=== PATIENT | male | born 1945 | race Caucasian/White ===

== ENCOUNTER 2018-09-15 12:21 | Day surgery (SDC) | payer MEDICARE, OTHER ==
[~2018-09-15] VITALS: Ht 152.4 cm; Wt 94.9 kg
[~2018-09-15 12:21] MED LIST: ACET500 PO; Avodart0.5 MG PO; BENADRYL25 MG PO; ROSU10TA PO; TRAM50 PO
--- NOTE | 2018-09-15 17:27 | NUR ---
1605 ARRIVED ARRIVED TO ROOM FROM PACU ACCOMPANIED BY
--- NOTE | 2018-09-15 18:11 | NUR ---
SUMMARY PATIENT SLEEPING WHEN UNDISTURBED. PATIENT REPORTS CURRENT PAIN TO LEFT KNEE IS 3/10. LEFT KNEE DRESSING DRY AND INTACT. PATIENT TAKING PO FLUID WITHOUT NAUSEA
[2018-09-16 04:26] LABS: BASOPHILS ABSOLUTE AUTO 0.02 K/mm3 (0.00-0.23); BASOPHILS PERCENT AUTO 0 % (0-2); EOSINOPHILS PERCENT AUTO 0 % (0-6); Hematocrit 42.3 % (37.0-53.0); IMMATURE GRAN ABSOLUTE AUTO 0.09 K/mm3 (0.00-0.10); IMMATURE GRAN PERCENT AUTO 1 % (0-1); LYMPHOCYTES ABSOLUTE AUTO 0.67 K/mm3 (0.84-5.20); LYMPHOCYTES PERCENT AUTO 4 % (21-46); MONOCYTES ABSOLUTE AUTO 0.84 K/mm3 (0.16-1.47); MONOCYTES PERCENT AUTO 5 % (4-13); Mean Corpuscular HGB 30.2 pg (26.0-34.0); Mean Corpuscular HGB Conc 33.1 g/dL (31.5-36.5); Mean Corpuscular Volume 91 fL (80-100); Mean Platelet Volume 9.1 fL (9.1-12.4); NEUTROPHILS ABSOLUTE AUTO 16.23 K/mm3 (1.96-9.15); NEUTROPHILS PERCENT AUTO 91 % (41-73); Platelet Count 228 K/mm3 (150-400); RDW Coefficient Variation 12.6 % (11.7-14.2); RDW Standard Deviation 41.9 fL (35.1-46.3); Red Blood Cell Count 4.64 M/mm3 (4.30-5.90); White Blood Cell Count 17.85 K/mm3 (4.00-11.30)
[2018-09-16 04:49] LABS: Anion Gap 6 mmol/L (6-16); Blood Urea Nitrogen 12 mg/dL (8-24); Bun/Creatinine Ratio 18.4 (12.0-20.0); CO2, Blood 27 mmol/L (21-32); Calcium, Blood 8.4 mg/dL (8.5-10.1); Chloride, Blood 103 mmol/L (98-108); Creatinine, Blood 0.65 mg/dL (0.60-1.20); Glomerular Filtration Rate >60 (60-); Glucose, Blood 139 mg/dL (70-99); Potassium, Blood 4.2 mmol/L (3.5-5.5); Sodium, Blood 136 mmol/L (136-145)
--- NOTE | 2018-09-16 07:19 | NUR ---
09/16/18 0719 Breanna Zaidi VERIFICATIONS: EDIT CHART.
--- NOTE | 2018-09-16 07:29 | NUR ---
SUMMARY: POD [address] WAITE. VSS, AFEBRILE, ROOM AIR. PT UP WITH 2 ASSIST FOR FIRST TIME OOB TO VOID AND HAS SEVERE N/V WITH EMESIS WHILE UP. PT MEDICATED WITH ZOFRAN AND REGLAN EFFECTIVELY RELIEVES N/V PER PT AND TOLERATES PRN PAIN MEDS WITH BITES OF CRACKERS AFTERWARDS. PAIN WELL COTROLLED WITH 10 ROXICODONE AND TYLENOL. ANTICIPATE PT/OT THIS DAY AND DC HOME.
[2018-09-16] MEDS ORDERED: Norco 5-325 Ta1 EACH PO (12:16)
[2018-09-16] MEDS ORDERED: ONDA4ODT MM (12:17)
[2018-09-16] MEDS ORDERED: Aspirin EC81 MG PO (12:23)
[2018-09-16] MEDS ORDERED: ONDA4 PO (12:45)
--- NOTE | 2018-09-16 14:38 | NUR ---
DISCHARGE PATIENT REPORTS PAIN CONTROLLED WITH NORCO. PATIENT DENIES NAUSEA. DISCHARGE ORDERS REVIEWED WITH PATIENT AND HIS . PATIENT DISCHARGED TO HOME
== END 2018-09-16 13:00 | disposition home or self-care (01) ==
LOC: ORSCMMR 12:21 → ORD 13:45 → SURS 16:40 → ORSCMMR 09-16 13:00 → SURS 09-16 13:00
PROVIDERS: Orthopaedic Surgery
PROC: 0SRD0JA Replacement of Left Knee Joint with Synthetic Substitute, Uncemented, Open Approach (ICD-10-PCS; principal; 2018-09-15 13:45)
DX: M17.12 Unilateral primary osteoarthritis, left knee (principal); E78.5 Hyperlipidemia, unspecified; Z79.899 Other long term (current) drug therapy
CPT/HCPCS: 36415; 73560-LT; 80048; 85025; 86850; 86900; 86901; 88300; 97110; 97116; 97162; 97530; A9270-GY; C1776; J0171; J0690; J0735; J1100; J1170; J2250; J2370; J2405; J2704; J2765; J2795; J3010; J7120

== ENCOUNTER 2020-01-29 11:27 | Day surgery (SDC) | payer MEDICARE, OTHER ==
[~2020-01-29] VITALS: Ht 182.9 cm; Wt 99.7 kg
[~2020-01-29 11:27] MED LIST changes: +Aspirin EC81 MG PO; +Norco 5-325 Ta1 EACH PO; +ONDA4 PO; +ONDA4ODT MM
[2020-01-29] MEDS ORDERED: ACETAMINOPHEN500 M2 (12:31)
--- NOTE | 2020-01-29 13:38 | NUR ---
01/29/20 1338 Ramón Denny SMALL RED SPOTS NOTED ON TOP OF FOOT AND ANKLE. NO OPEN SKIN NOTED.
== END 2020-01-29 15:16 | disposition home or self-care (01) ==
LOC: ORSCSDS 11:27
PROVIDERS: Podiatrist Foot & Ankle Surgery
PROC: 0SGN04Z Fusion of Left Metatarsal-Phalangeal Joint with Internal Fixation Device, Open Approach (ICD-10-PCS; principal; 2020-01-29 13:00)
DX: M20.22 Hallux rigidus, left foot (principal); Z87.891 Personal history of nicotine dependence; I10 Essential (primary) hypertension; E78.5 Hyperlipidemia, unspecified; Z79.899 Other long term (current) drug therapy
CPT/HCPCS: C1713; C1769; J0171; J0690; J1100; J2250; J2405; J2704; J3010; J7120

== ENCOUNTER → 2020-07-01 | Outpatient (CLI) | payer MEDICARE, OTHER ==
[~2020-07-01] MED LIST changes: +ACETAMINOPHEN500 M2
== END | disposition home or self-care (01) ==
LOC: LAB SHORT 12:22
DX: L82.1 Other seborrheic keratosis (principal)
CPT/HCPCS: 88305

== ENCOUNTER 2023-06-30 12:46 | Day surgery (SDC) | payer MEDICARE, OTHER ==
[~2023-06-30] VITALS: Ht 182.9 cm; Wt 98.8 kg
[~2023-06-30 12:46] MED LIST changes: +Balanced Salt Epinephrine Irrigation Solution 500 mL IR SCH; +LOSA25 PO; +Lidocaine HCl/Pf 1% 5 ML VIAL ONE; +Lidocaine HCl/Pf 1% 5 ML VIAL XX SCH; +Moxifloxacin HCL 0.5 MG/0.1 ML 0.4MLSYR LEFTEYE SCH; +NS 500 ML IV ONE; +NS 500 ML ONE; +PANT40 PO; +PHENYLEPHRINE\\TROPICAMIDE\\TETRACAINE OPHTHALMIC DILATING SOLN LEFTEYE PRN; +Povidone-Iodine 450 DROP/30 ML Solution LEFTEYE SCH; +Povidone-Iodine 450 DROP/30 ML Solution ONE; +TAMS.4ER PO; +Triamcinolone Inj Susp 40 MG / ML 1ML Vial INJ SCH; +Triamcinolone Inj Susp 40 MG / ML 1ML Vial ONE
[2023-06-30] MEDS ORDERED: Midazolam HCl 1MG / ML 2ML Vial ONE (13:08)
[2023-06-30] MEDS ORDERED: FentaNYL Citrate 50 MCG/ML 2 ML Injection ONE (13:08)
[2023-06-30] MEDS ORDERED: NS 500 ML IV ONE (13:08)
[2023-06-30] MEDS ORDERED: Tetracaine HCl 0.5% Opth Soln 15 ml LEFTEYE ONE (13:58)
[2023-06-30] MEDS ORDERED: Glycopyrrolate 0.2 MG/ML 5ML VIAL ONE (14:14)
[2023-06-30 14:38] VITALS: BP 154/88
== END 2023-06-30 14:33 | disposition home or self-care (01) ==
LOC: ORSCSDS 12:46
PROVIDERS: Ophthalmology
PROC: 08RK3JZ Replacement of Left Lens with Synthetic Substitute, Percutaneous Approach (ICD-10-PCS; principal; 2023-06-30 14:00)
DX: H25.12 Age-related nuclear cataract, left eye (principal); Z96.1 Presence of intraocular lens; I10 Essential (primary) hypertension; Z87.891 Personal history of nicotine dependence; Z79.899 Other long term (current) drug therapy
CPT/HCPCS: J2001; J2250; J3010; J3301; J7040; V2632